=== PATIENT | male | born 1980 | race Asian ===

== ENCOUNTER 2018-08-04 17:48 | Emergency (ER) | payer MEDICAID, OTHER ==
[~2018-08-04] VITALS: Ht 157.5 cm; Wt 47.7 kg
[2018-08-04] MEDS ORDERED: morphine 4 MG/ML inj SYRINge IM ONE (19:50)
[2018-08-04 20:56] LABS: COLOR,URINE YELLOW (Yellow); GLUCOSE, URINE 500 mg/dl (Neg); KETONES,URINE 40 mg/dl (Neg); LEUKOCYTE ESTERASE ,URINE SMALL (Neg); NITRITES, URINE NEGATIVE (Neg); OCCULT BLOOD,URINE TRACE-INTACT (Neg); PH,URINE 5.5 (4.8-8.0); PROTEIN,URINE NEGATIVE (Neg); UROBILINOGEN,URINE 0.2 E.U/dL (0.2-1.0)
[2018-08-04 20:57] LABS: BASOPHILS % (AUTO) 0.2 % (0-1); EOSINOPHILS % (AUTO) 0.5 % (0-6); HEMATOCRIT 39.7 % (42.0-52.0); HEMOGLOBIN 13.9 g/dl (14.0-17.9); LYMPHOCYTES # (AUTO) 0.9 X10'3 (1.1-4.8); LYMPHOCYTES % (AUTO) 10.2 % (21-51); MEAN CORPUSCULAR HEMOGLOBIN 32.3 PG (27.0-31.0); MEAN CORPUSCULAR HGB CONC 35.1 g/dL (33.0-36.5); MEAN CORPUSCULAR VOLUME 92.1 FL (78-98); MEAN PLATELET VOLUME 7.4 FL (7.4-10.4); MONOCYTES # (AUTO) 1.1 X10'3 (0-0.9); MONOCYTES % (AUTO) 12.7 % (2-12); NEUTROPHILS # (AUTO) 6.8 X10'3 (1.8-7.7); NEUTROPHILS % (AUTO) 76.4 % (42-75); PLATELET COUNT 271 X10'3 (140-440); RED BLOOD COUNT 4.31 X10'6 (4.70-6.10); RED CELL DISTRIBUTION WIDTH 13.1 % (11.5-14.5); WHITE BLOOD COUNT 8.8 X10'3 (4.5-11.0)
[2018-08-04 21:05] LABS: CLARITY,URINE SLIGHTLY CLOUDY (Clear); UA COLLECTION TYPE CLN CATCH MIDSTREAM
[2018-08-04 21:06] LABS: BACTERIA,URINE NONE SEEN /HPF (Neg); RBC,URINE 0-2 /HPF (0-2); SQUAMOUS EPITHELIAL CELL,UR FEW /LPF (FEW)
[2018-08-04 21:07] LABS: ALANINE AMINOTRANSFERASE 61 U/L (12-78); ALBUMIN 3.6 G/DL (3.4-5.0); ALBUMIN/GLOBULIN RATIO 0.9 (1.1-1.5); ALKALINE PHOSPHATASE 89 IU/L (46-116); ANION GAP 11 (8-16); ASPARTATE AMINO TRANSFERASE 57 U/L (10-37); BILIRUBIN,TOTAL 0.7 MG/DL (0.1-1.0); BLOOD UREA NITROGEN 7 MG/DL (7-18); BUN/CREATININE RATIO 11.9 (5.4-32.0); CALCIUM 8.9 MG/DL (8.5-10.1); CHLORIDE 90 MMOL/L (99-107); CREATININE 0.59 MG/DL (0.60-1.10); GLUCOSE 73 MG/DL (70-104); POTASSIUM 3.5 MMOL/L (3.5-5.1); SODIUM 125 MMOL/L (135-145); TOTAL CARBON DIOXIDE 23.8 MMOL/L (24-32); TOTAL PROTEIN 7.4 G/DL (6.4-8.2); eGFR > 90 ML/MIN
[2018-08-04] MEDS ORDERED: DOXYCYCLINE 100MG CAPSULE PO STA (21:26)
[2018-08-04] MEDS ORDERED: ibuprofen tablet 400 MG TABLET PO ONE (21:30)
[2018-08-04] MEDS ORDERED: CefTRIAXone 250MG inj IM ONE (21:30)
[2018-08-04] MEDS ORDERED: DOXY100C2 PO (21:30)
[2018-08-04] MEDS ORDERED: CefTRIAXone 250MG IM Kit w/LIDOcaine IM ONE (21:35)
[2018-08-04 22:24] VITALS: BP 113/83
== END 2018-08-04 22:26 | disposition home or self-care (01) ==
LOC: ER 17:50
DX: N45.3 Epididymo-orchitis (principal)
CPT/HCPCS: 36415; 76870; 80053; 81001; 85025; 87491; 87591; 96372; 99284; J0696; J2270

== ENCOUNTER 2024-07-15 16:33 | Emergency (ER) | payer MEDICAID, OTHER ==
[~2024-07-15] VITALS: Ht 154.9 cm; Wt 48.0 kg
[~2024-07-15 16:33] MED LIST: CYCL-1 PO; IBUP-1985 PO
[2024-07-15 16:54] VITALS: BP 140/75; PULSE 91; O2SAT 97
[2024-07-15 17:21] VITALS: RESP 16
[2024-07-15] MEDS: ketorolac trometh 15mg/ml vial 15 MG/ML ML IM ONE (17:21)
[2024-07-15] MEDS: LIDOcaine 5% patch TP ONE (17:21)
[2024-07-15] MEDS ORDERED: LIDO700A32 TOP (17:41)
[2024-07-15 17:55] VITALS: TEMP 99.1
== END 2024-07-15 17:56 | disposition home or self-care (01) ==
LOC: ER 16:34
DX: M54.50 Low back pain, unspecified (principal)
CPT/HCPCS: 96372; 99283; J1885